=== PATIENT | male | born 1980 | race Caucasian/White ===

== ENCOUNTER 2016-10-23 23:30 | Emergency (ER) | payer SELFPAY ==
[~2016-10-23] VITALS: Ht 180.3 cm; Wt 77.3 kg
[~2016-10-23 23:30] MED LIST: ADVIL200 MG PO; ATIVAN 0.50.5 MG/TAB PO; CELEXA 20MG20 MG/TAB PO; DAZIDOX20 MG PO; DESYREL 100MG100 MG PO; DILAUDID 4MG TAB4 MG PO; FLEXERIL 1010 MG/TAB PO; MOTRIN 800800 MG/TAB PO; NAPROSYN500 MG PO; NO HOME MEDICATIONS; NORCO 325 MG-51 TAB; PAXIL 20MG20 MG PO; PAXIL40 MG PO; PERCOCET 325 MG1 TA2 PO; PERCOCET 325 MG1 TAB PO; PREDNISONE20 MG PO; SKELAXIN 4400 MG/TAB PO; SUBOXONE 2 MG-01 TAB SL; SUBOXONE 8 MG-21 FIL SL; SUBOXONE 8 MG-21 TAB SL; ULTRAM 50MG TAB50 MG PO; VALIUM 2MG T2 MG/TAB PO; VALIUM 5MG T5 MG/TAB PO; XANAX 0.5MG0.5 MG PO; XANAX 1MG1 MG PO; ZINC B.E.C.1 TAB PO; ZOFRAN 4MG T4 MG/TAB PO
[2016-10-23 23:33] VITALS: BP 112/69; TEMP 98.2
[2016-10-24] MEDS ORDERED: NORCO 325 MG-51 TAB PO (00:41)
[2016-10-24 00:49] VITALS: PULSE 120
== END 2016-10-24 00:50 | disposition home or self-care (01) ==
LOC: COL.ER 23:30
DX: S76.012A Strain of muscle, fascia and tendon of left hip, initial encounter (principal); S70.02XA Contusion of left hip, initial encounter; W22.8XXA Striking against or struck by other objects, initial encounter

== ENCOUNTER 2016-12-21 20:26 | Emergency (ER) | payer SELFPAY ==
[~2016-12-21] VITALS: Ht 180.3 cm; Wt 77.3 kg
[~2016-12-21 20:26] MED LIST changes: +NORCO 325 MG-51 TAB PO
[2016-12-21 20:28] VITALS: BP 121/60; PULSE 98; TEMP 98.8
[2016-12-21] MEDS ORDERED: DESYREL 100MG100 MG PO (20:30)
== END 2016-12-21 21:10 | disposition left against medical advice (07) ==
LOC: COL.ER 20:26
DX: F32.9 Major depressive disorder, single episode, unspecified (principal); Z88.1 Allergy status to other antibiotic agents; Z88.5 Allergy status to narcotic agent

== ENCOUNTER 2017-03-21 17:34 | Emergency (ER) | payer SELFPAY ==
[~2017-03-21] VITALS: Ht 182.9 cm; Wt 77.3 kg
[2017-03-21 17:35] VITALS: BP 138/76; PULSE 104; TEMP 99.2
[2017-03-21] MEDS ORDERED: NORCO 325 MG-51 TAB PO (18:52)
== END 2017-03-21 19:15 | disposition home or self-care (01) ==
LOC: COL.ER 17:34
DX: S46.912A Strain of unspecified muscle, fascia and tendon at shoulder and upper arm level, left arm, initial encounter (principal); S20.211A Contusion of right front wall of thorax, initial encounter; V19.9XXA Pedal cyclist (driver) (passenger) injured in unspecified traffic accident, initial encounter; Y93.55 Activity, bike riding; Y92.828 Other wilderness area as the place of occurrence of the external cause
CPT/HCPCS: A9284

== ENCOUNTER 2017-03-28 00:39 | Emergency (ER) | payer SELFPAY ==
[~2017-03-28] VITALS: Ht 182.9 cm; Wt 75.5 kg
[2017-03-28 00:43] VITALS: TEMP 99.1
[2017-03-28 01:30] LABS: BASO # 0.1 (0.0-0.2); BASO % 0.8 % (0.0-2.0); EOS # 0.2 (0.0-0.7); EOS % 1.9 % (0-4.0); GRAN # 5.5 (1.4-6.5); GRAN % 60.8 % (42.2-75.2); HEMOGLOBIN 12.1 g/dl (13.5-18.0); LYMPH # 2.4 (1.2-3.4); LYMPH % 26.7 % (20.0-51.0); MEAN CELL VOLUME 91 fl (80.0-100.0); MEAN CORPUSCULAR HEMOGLOBIN 32 pg (27.0-31.0); MEAN CORPUSCULAR HGB CONC 35 g/dl (33.0-37.0); MONO # 0.9 (0.1-0.6); MONO % 9.4 % (1.7-9.3); PLATELET COUNT 306 K/mm3 (130-400); RED BLOOD COUNT 3.79 M/mm3 (4.20-5.60); REDCELL DISTRIBUTION WIDTH-CV 12.6 % (11.5-14.5); WHITE BLOOD COUNT 9.1 K/mm3 (4.8-10.8)
[2017-03-28 01:31] LABS: HEMATOCRIT 34.4 % (42.0-52.0)
[2017-03-28 01:39] LABS: ADJUSTED CALCIUM 9.1 mg/dL (8.4-10.2); ALBUMIN 4.4 gm/dL (3.5-5.0); BILIRUBIN,TOTAL 0.6 mg/dL (0.0-1.0); CALCIUM 9.4 mg/dL (8.4-10.2); CREATININE, serum 0.83 mg/dL (0.66-1.25); POTASSIUM 3.5 mmol/L (3.4-5.0); TOTAL PROTEIN 7.3 gm/dL (6.4-8.2)
[2017-03-28 02:36] LABS: PH 6 (5-8); SQUAMOUS EPITHELIAL None Seen /hpf; URINE APPEARANCE Clear; URINE BACTERIA None Seen /hpf; URINE BILIRUBIN Negative (NEGATIVE); URINE BLOOD Negative (NEGATIVE); URINE COLOR Yellow; URINE GLUCOSE Negative (NEGATIVE); URINE KETONE Trace (NEGATIVE); URINE UROBILINOGEN Negative (NEGATIVE); URINE WBC 0-2 /hpf
[2017-03-28] MEDS ORDERED: VOLTAREN 75 DR75 MG PO (03:49)
[2017-03-28] MEDS ORDERED: BACTRIM DS 8001 TAB PO (03:49)
[2017-03-28] MEDS ORDERED: NORCO 325 MG-51 TAB PO (03:49)
[2017-03-28] MEDS ORDERED: SUDAFED30 MG PO (03:49)
[2017-03-28 05:30] VITALS: BP 113/69; PULSE 60
== END 2017-03-28 05:30 | disposition home or self-care (01) ==
LOC: COL.ER 00:39
PROVIDERS: Emergency Medicine
DX: T74.11XA Adult physical abuse, confirmed, initial encounter (principal); S02.2XXA Fracture of nasal bones, initial encounter for closed fracture; S00.03XA Contusion of scalp, initial encounter; S00.83XA Contusion of other part of head, initial encounter; S00.431A Contusion of right ear, initial encounter; S80.211A Abrasion, right knee, initial encounter; S70.311A Abrasion, right thigh, initial encounter; S50.319A Abrasion of unspecified elbow, initial encounter; S60.519A Abrasion of unspecified hand, initial encounter; F32.9 Major depressive disorder, single episode, unspecified; F41.9 Anxiety disorder, unspecified; Y07.9 Unspecified perpetrator of maltreatment and neglect; Y04.2XXA Assault by strike against or bumped into by another person, initial encounter
CPT/HCPCS: J2765; J3010; J7030; Q9967

== ENCOUNTER 2018-03-06 17:07 | Emergency (ER) | payer SELFPAY ==
[~2018-03-06] VITALS: Ht 182.9 cm; Wt 77.3 kg
[~2018-03-06 17:07] MED LIST changes: +BACTRIM DS 8001 TAB PO; +SUDAFED30 MG PO; +VOLTAREN 75 DR75 MG PO
[2018-03-06 17:24] VITALS: BP 123/70; PULSE 86; TEMP 99.1
[2018-03-06] MEDS ORDERED: NORCO 325 MG-51 TAB PO (19:18)
== END 2018-03-06 20:11 | disposition home or self-care (01) ==
LOC: COL.ER 17:07
DX: S62.001A Unspecified fracture of navicular [scaphoid] bone of right wrist, initial encounter for closed fracture (principal); S39.012A Strain of muscle, fascia and tendon of lower back, initial encounter; F41.9 Anxiety disorder, unspecified; F32.9 Major depressive disorder, single episode, unspecified; M54.9 Dorsalgia, unspecified; G89.29 Other chronic pain; F17.210 Nicotine dependence, cigarettes, uncomplicated; Z88.6 Allergy status to analgesic agent; V89.2XXA Person injured in unspecified motor-vehicle accident, traffic, initial encounter; Y92.410 Unspecified street and highway as the place of occurrence of the external cause
CPT/HCPCS: Q4021

== ENCOUNTER 2018-06-08 18:18 | Emergency (ER) | payer SELFPAY ==
[~2018-06-08] VITALS: Ht 182.9 cm; Wt 72.7 kg
[2018-06-08 18:24] VITALS: BP 114/71; TEMP 98
[2018-06-08 20:01] VITALS: PULSE 102
== END 2018-06-08 20:07 | disposition home or self-care (01) ==
LOC: COL.ER 18:18
DX: S61.210A Laceration without foreign body of right index finger without damage to nail, initial encounter (principal); S61.214A Laceration without foreign body of right ring finger without damage to nail, initial encounter; F41.9 Anxiety disorder, unspecified; F17.210 Nicotine dependence, cigarettes, uncomplicated; W22.8XXA Striking against or struck by other objects, initial encounter; V19.9XXA Pedal cyclist (driver) (passenger) injured in unspecified traffic accident, initial encounter

== ENCOUNTER 2018-06-11 11:55 | Emergency (ER) | payer SELFPAY ==
[~2018-06-11] VITALS: Ht 182.9 cm; Wt 77.3 kg
[2018-06-11 11:57] VITALS: TEMP 98.7
[2018-06-11 13:09] VITALS: BP 110/78; PULSE 88
== END 2018-06-11 13:05 | disposition home or self-care (01) ==
LOC: COL.ER 11:55
DX: S61.216A Laceration without foreign body of right little finger without damage to nail, initial encounter (principal); F32.9 Major depressive disorder, single episode, unspecified; F41.9 Anxiety disorder, unspecified; W26.0XXA Contact with knife, initial encounter

== ENCOUNTER → 2019-02-05 | Outpatient (CLI) | payer SELFPAY | LOC: ZCOL.LAB 17:14 | DX: R21 Rash and other nonspecific skin eruption (principal) ==

== ENCOUNTER 2019-06-10 22:33 | Emergency (ER) | payer SELFPAY ==
[~2019-06-10] VITALS: Ht 180.3 cm; Wt 75.0 kg
[2019-06-10 22:34] VITALS: TEMP 98
[2019-06-10 23:42] VITALS: BP 108/82; PULSE 104
== END 2019-06-10 23:43 | disposition home or self-care (01) ==
LOC: COL.ER 22:33
DX: S61.212A Laceration without foreign body of right middle finger without damage to nail, initial encounter (principal); S93.402A Sprain of unspecified ligament of left ankle, initial encounter; F41.9 Anxiety disorder, unspecified; F32.9 Major depressive disorder, single episode, unspecified; F17.210 Nicotine dependence, cigarettes, uncomplicated; Z23 Encounter for immunization; W25.XXXA Contact with sharp glass, initial encounter; W19.XXXA Unspecified fall, initial encounter; X50.1XXA Overexertion from prolonged static or awkward postures, initial encounter

== ENCOUNTER 2019-06-12 14:30 | Emergency (ER) | payer SELFPAY ==
[~2019-06-12] VITALS: Ht 180.3 cm; Wt 75.0 kg
[2019-06-12 14:58] VITALS: BP 109/83; TEMP 98.1
[2019-06-12] MEDS ORDERED: NORCO 325 MG-51 TAB PO (17:02)
[2019-06-12 17:36] VITALS: PULSE 86
--- NOTE | 2019-06-12 17:41 | NUR ---
STAN responded to ED consult and met with the patient and his friend. The patient had a 5th metatarsal fracture and needs crutches. The patient is self pay and reports that he is unable to afford crutches. STAN provided the patient with a med voucher that expires, 06/13, to [facility] for the crutches. The crutches were $29.95. STAN contacted and faxed the med voucher and script to [facility]. The patient and his friend report that they also do not have transportation to [facility] or back [place] and are unable to afford a taxi. STAN contacted [facility]. They report they are booked until 7:00 PM. STAN informed the patient and his friend. The patient reports that they are trying to get a friend to come pick them up, if unable to they would need the taxi. STAN provided the taxi voucher to the patient's RN and informed her of the above information.
== END 2019-06-12 17:36 | disposition home or self-care (01) ==
LOC: COL.ER 14:30
DX: S92.352A Displaced fracture of fifth metatarsal bone, left foot, initial encounter for closed fracture (principal); S93.402A Sprain of unspecified ligament of left ankle, initial encounter; F41.9 Anxiety disorder, unspecified; F32.9 Major depressive disorder, single episode, unspecified; F17.210 Nicotine dependence, cigarettes, uncomplicated; X50.1XXA Overexertion from prolonged static or awkward postures, initial encounter; Y99.0 Civilian activity done for income or pay
CPT/HCPCS: Q4045

== ENCOUNTER 2019-07-01 14:20 | Emergency (ER) | payer SELFPAY ==
[~2019-07-01] VITALS: Ht 180.3 cm; Wt 75.0 kg
[2019-07-01 14:31] VITALS: BP 145/88; TEMP 97.9
[2019-07-01] MEDS ORDERED: NAPROXEN 3375 MG/TAB PO (15:25)
[2019-07-01] MEDS ORDERED: NORCO 325 MG-51 TAB PO (16:17)
[2019-07-01 16:38] VITALS: PULSE 80
== END 2019-07-01 16:40 | disposition home or self-care (01) ==
LOC: COL.ER 14:20
DX: S30.0XXA Contusion of lower back and pelvis, initial encounter (principal); S63.91XA Sprain of unspecified part of right wrist and hand, initial encounter; S90.32XA Contusion of left foot, initial encounter; W10.9XXA Fall (on) (from) unspecified stairs and steps, initial encounter; Y92.009 Unspecified place in unspecified non-institutional (private) residence as the place of occurrence of the external cause
CPT/HCPCS: J1885; J2270; J2550

== ENCOUNTER 2019-10-06 10:26 | Emergency (ER) | payer SELFPAY ==
[~2019-10-06] VITALS: Ht 180.3 cm; Wt 77.3 kg
[~2019-10-06 10:26] MED LIST changes: +NAPROXEN 3375 MG/TAB PO
[2019-10-06 10:32] VITALS: BP 137/62; TEMP 97.9
[2019-10-06] MEDS ORDERED: NORCO 325 MG-51 TAB PO ×3 (10:56→13:53)
[2019-10-06 11:36] VITALS: PULSE 87
== END 2019-10-06 11:37 | disposition home or self-care (01) ==
LOC: COL.ER 10:26
DX: T22.311D Burn of third degree of right forearm, subsequent encounter (principal); T31.11 Burns involving 10-19% of body surface with 10-19% third degree burns; M54.5 Low back pain; R25.2 Cramp and spasm; X19.XXXD Contact with other heat and hot substances, subsequent encounter; Y92.009 Unspecified place in unspecified non-institutional (private) residence as the place of occurrence of the external cause

== ENCOUNTER 2020-03-04 09:22 | Emergency (ER) | payer SELFPAY ==
[~2020-03-04] VITALS: Ht 180.3 cm; Wt 77.3 kg
[2020-03-04 09:25] VITALS: BP 117/71; TEMP 98.5
[2020-03-04] MEDS ORDERED: NORCO 325 MG-51 TAB PO ×2 (10:08)
[2020-03-04] MEDS ORDERED: FLEXERIL 1010 MG/TAB PO (10:08)
[2020-03-04] MEDS ORDERED: LIDODERM 5% PATC1 EA TP (10:08)
[2020-03-04 10:35] VITALS: PULSE 104
== END 2020-03-04 10:35 | disposition home or self-care (01) ==
LOC: COL.ER 09:22
DX: M54.5 Low back pain (principal); F17.210 Nicotine dependence, cigarettes, uncomplicated; Z88.5 Allergy status to narcotic agent
CPT/HCPCS: J1885

== ENCOUNTER 2020-03-08 14:02 | Emergency (ER) | payer SELFPAY ==
[~2020-03-08] VITALS: Ht 180.3 cm; Wt 79.5 kg
[~2020-03-08 14:02] MED LIST changes: +LIDODERM 5% PATC1 EA TP
[2020-03-08 14:33] VITALS: BP 118/80; TEMP 97.7
[2020-03-08 15:44] VITALS: PULSE 80
== END 2020-03-08 15:30 | disposition home or self-care (01) ==
LOC: COL.ER 14:02
DX: S23.3XXA Sprain of ligaments of thoracic spine, initial encounter (principal); F41.9 Anxiety disorder, unspecified; F32.9 Major depressive disorder, single episode, unspecified; F17.210 Nicotine dependence, cigarettes, uncomplicated; G89.29 Other chronic pain; M54.9 Dorsalgia, unspecified; W10.9XXA Fall (on) (from) unspecified stairs and steps, initial encounter; Y92.009 Unspecified place in unspecified non-institutional (private) residence as the place of occurrence of the external cause
CPT/HCPCS: J1885

== ENCOUNTER 2020-03-25 20:47 | Emergency (ER) | payer SELFPAY ==
[~2020-03-25] VITALS: Ht 180.3 cm; Wt 72.7 kg
[2020-03-25 20:55] VITALS: BP 112/79; TEMP 97.5
[2020-03-25 21:51] VITALS: PULSE 78
== END 2020-03-25 21:51 | disposition home or self-care (01) ==
LOC: COL.ER 20:47
DX: G43.909 Migraine, unspecified, not intractable, without status migrainosus (principal); F32.9 Major depressive disorder, single episode, unspecified; F17.210 Nicotine dependence, cigarettes, uncomplicated; Z88.1 Allergy status to other antibiotic agents; Z88.6 Allergy status to analgesic agent
CPT/HCPCS: J1200; J1885; J2765; J7030

== ENCOUNTER → 2020-05-16 | Outpatient (CLI) | payer SELFPAY | LOC: ZCOL.LAB 19:43 | DX: B34.9 Viral infection, unspecified (principal); Z20.828 Contact with and (suspected) exposure to other viral communicable diseases ==

== ENCOUNTER 2020-05-23 16:17 | Emergency (ER) | payer SELFPAY ==
[~2020-05-23] VITALS: Ht 180.3 cm; Wt 72.7 kg
[2020-05-23 16:31] VITALS: BP 127/77; TEMP 98.2
[2020-05-23] MEDS ORDERED: NORCO 325 MG-51 TAB PO (17:16)
[2020-05-23 17:42] VITALS: PULSE 92
== END 2020-05-23 17:44 | disposition home or self-care (01) ==
LOC: COL.ER 16:17
DX: S93.402A Sprain of unspecified ligament of left ankle, initial encounter (principal); G43.909 Migraine, unspecified, not intractable, without status migrainosus; F41.9 Anxiety disorder, unspecified; F32.9 Major depressive disorder, single episode, unspecified; G89.29 Other chronic pain; F17.210 Nicotine dependence, cigarettes, uncomplicated; Z88.1 Allergy status to other antibiotic agents; Z88.6 Allergy status to analgesic agent; X50.1XXA Overexertion from prolonged static or awkward postures, initial encounter

== ENCOUNTER 2020-06-06 16:07 | Emergency (ER) | payer SELFPAY ==
[~2020-06-06] VITALS: Ht 180.3 cm; Wt 72.7 kg
[2020-06-06] MEDS ORDERED: FLEXERIL 1010 MG/TAB PO (18:08)
[2020-06-06 18:25] VITALS: BP 132/74; PULSE 78; TEMP 98.1
== END 2020-06-06 18:30 | disposition home or self-care (01) ==
LOC: COL.ER 16:07
DX: S29.012A Strain of muscle and tendon of back wall of thorax, initial encounter (principal); F41.9 Anxiety disorder, unspecified; F17.210 Nicotine dependence, cigarettes, uncomplicated; X50.0XXA Overexertion from strenuous movement or load, initial encounter; Y93.F2 Activity, caregiving, lifting; Y99.0 Civilian activity done for income or pay
CPT/HCPCS: J1885

== ENCOUNTER 2020-06-21 16:01 | Emergency (ER) | payer SELFPAY ==
[~2020-06-21] VITALS: Ht 180.3 cm; Wt 67.0 kg
[2020-06-21 16:08] VITALS: TEMP 96.7
[2020-06-21] MEDS ORDERED: DESYREL 50MG50 MG PO (16:48)
[2020-06-21] MEDS ORDERED: PAXIL 20MG20 MG PO ×2 (16:48)
[2020-06-21] MEDS ORDERED: ATARAX50 MG PO (16:50)
[2020-06-21 17:10] VITALS: BP 138/87; PULSE 84
== END 2020-06-21 17:10 | disposition home or self-care (01) ==
LOC: COL.ER 16:01
DX: F41.9 Anxiety disorder, unspecified (principal); F32.9 Major depressive disorder, single episode, unspecified; M25.551 Pain in right hip; F17.200 Nicotine dependence, unspecified, uncomplicated; Z88.0 Allergy status to penicillin; Z88.5 Allergy status to narcotic agent
CPT/HCPCS: J1885

== ENCOUNTER 2020-08-11 17:12 | Emergency (ER) | payer SELFPAY ==
[~2020-08-11] VITALS: Ht 180.3 cm; Wt 68.2 kg
[~2020-08-11 17:12] MED LIST changes: +ATARAX50 MG PO; +DESYREL 50MG50 MG PO
[2020-08-11 17:19] VITALS: TEMP 97.5
[2020-08-11 17:59] VITALS: BP 110/62; PULSE 95
== END 2020-08-11 17:57 | disposition home or self-care (01) ==
LOC: COL.ER 17:12
DX: F41.9 Anxiety disorder, unspecified (principal); G89.29 Other chronic pain; F32.9 Major depressive disorder, single episode, unspecified; F17.210 Nicotine dependence, cigarettes, uncomplicated; Z88.1 Allergy status to other antibiotic agents; Z88.6 Allergy status to analgesic agent

== ENCOUNTER 2020-08-25 18:11 | Emergency (ER) | payer SELFPAY ==
[~2020-08-25] VITALS: Ht 180.3 cm; Wt 68.2 kg
[2020-08-25 18:20] VITALS: TEMP 98.8
[2020-08-25 20:19] VITALS: BP 107/75; PULSE 89
== END 2020-08-25 20:20 | disposition home or self-care (01) ==
LOC: COL.ER 18:11
DX: S70.02XA Contusion of left hip, initial encounter (principal); F17.210 Nicotine dependence, cigarettes, uncomplicated; Z88.1 Allergy status to other antibiotic agents; Z88.6 Allergy status to analgesic agent; W00.0XXA Fall on same level due to ice and snow, initial encounter
CPT/HCPCS: J1885

== ENCOUNTER 2020-09-19 16:31 | Emergency (ER) | payer SELFPAY ==
[~2020-09-19] VITALS: Ht 180.3 cm; Wt 68.2 kg
[2020-09-19 16:55] VITALS: BP 117/74; TEMP 97.4
[2020-09-19] MEDS ORDERED: LIDODERM 5% PATC1 EA TP (18:00)
[2020-09-19 18:46] VITALS: PULSE 94
== END 2020-09-19 18:47 | disposition home or self-care (01) ==
LOC: COL.ER 16:31
DX: S20.224A Contusion of middle back wall of thorax, initial encounter (principal); F17.210 Nicotine dependence, cigarettes, uncomplicated; R06.02 Shortness of breath; Z88.1 Allergy status to other antibiotic agents; Z88.6 Allergy status to analgesic agent; W01.190A Fall on same level from slipping, tripping and stumbling with subsequent striking against furniture, initial encounter
CPT/HCPCS: J1885

== ENCOUNTER 2020-10-18 17:34 | Emergency (ER) | payer SELFPAY ==
[~2020-10-18] VITALS: Ht 180.3 cm; Wt 75.0 kg
[2020-10-18 17:39] VITALS: BP 139/98; PULSE 97; TEMP 98
[2020-10-18] MEDS ORDERED: CIPRO 500MG TA500 MG PO (18:14)
[2020-10-18] MEDS ORDERED: PHENERGAN 25 TA25 MG PO (18:14)
== END 2020-10-18 18:31 | disposition home or self-care (01) ==
LOC: COL.ER 17:34
DX: A05.3 Foodborne Vibrio parahaemolyticus intoxication (principal); F17.210 Nicotine dependence, cigarettes, uncomplicated; Z88.1 Allergy status to other antibiotic agents; Z88.6 Allergy status to analgesic agent
CPT/HCPCS: J1885; J2550

== ENCOUNTER 2020-10-24 18:53 | Emergency (ER) | payer SELFPAY ==
[~2020-10-24] VITALS: Ht 180.3 cm; Wt 72.7 kg
[~2020-10-24 18:53] MED LIST changes: +CIPRO 500MG TA500 MG PO; +PHENERGAN 25 TA25 MG PO
[2020-10-24 19:00] VITALS: TEMP 98.4
[2020-10-24] MEDS ORDERED: ATARAX 25MG25 MG/TAB PO (19:24)
[2020-10-24] MEDS ORDERED: FLEXERIL 1010 MG/TAB PO (19:24)
[2020-10-24 19:30] VITALS: BP 139/87; PULSE 88
== END 2020-10-24 19:31 | disposition home or self-care (01) ==
LOC: COL.ER 18:53
DX: M62.830 Muscle spasm of back (principal); F17.210 Nicotine dependence, cigarettes, uncomplicated; Z88.1 Allergy status to other antibiotic agents; Z88.6 Allergy status to analgesic agent
CPT/HCPCS: J1885

== ENCOUNTER 2020-10-28 01:02 | Emergency (ER) | payer SELFPAY ==
[~2020-10-28] VITALS: Ht 180.3 cm; Wt 68.2 kg
[~2020-10-28 01:02] MED LIST changes: +ATARAX 25MG25 MG/TAB PO
[2020-10-28 01:03] VITALS: TEMP 98.5
[2020-10-28 02:43] VITALS: BP 119/86; PULSE 89
== END 2020-10-28 02:43 | disposition home or self-care (01) ==
LOC: COL.ER 01:02
DX: S51.812A Laceration without foreign body of left forearm, initial encounter (principal); F10.129 Alcohol abuse with intoxication, unspecified; F17.210 Nicotine dependence, cigarettes, uncomplicated; Z88.1 Allergy status to other antibiotic agents; Z88.6 Allergy status to analgesic agent; W01.190A Fall on same level from slipping, tripping and stumbling with subsequent striking against furniture, initial encounter
CPT/HCPCS: J2270

== ENCOUNTER 2020-10-31 19:33 | Emergency (ER) | payer SELFPAY ==
[~2020-10-31] VITALS: Ht 180.3 cm; Wt 65.9 kg
[2020-10-31 19:48] VITALS: BP 129/84; TEMP 98.2
[2020-10-31 20:12] VITALS: PULSE 93
== END 2020-10-31 20:12 | disposition home or self-care (01) ==
LOC: COL.ER 19:33
DX: Z48.00 Encounter for change or removal of nonsurgical wound dressing (principal); F32.9 Major depressive disorder, single episode, unspecified; F41.9 Anxiety disorder, unspecified; Z88.1 Allergy status to other antibiotic agents; Z88.6 Allergy status to analgesic agent

== ENCOUNTER 2020-11-15 19:15 | Emergency (ER) | payer SELFPAY ==
[~2020-11-15] VITALS: Ht 180.3 cm; Wt 68.2 kg
[2020-11-15 19:20] VITALS: TEMP 97.3
[2020-11-15 20:03] VITALS: BP 124/72; PULSE 82
== END 2020-11-15 20:06 | disposition home or self-care (01) ==
LOC: COL.ER 19:15
DX: M79.632 Pain in left forearm (principal); Z48.00 Encounter for change or removal of nonsurgical wound dressing; Z88.1 Allergy status to other antibiotic agents; Z88.5 Allergy status to narcotic agent
CPT/HCPCS: J1885

== ENCOUNTER 2021-01-29 17:35 | Emergency (ER) | payer SELFPAY ==
[~2021-01-29] VITALS: Ht 180.3 cm; Wt 72.7 kg
[2021-01-29] MEDS ORDERED: PREDNISONE20 MG PO (18:08)
[2021-01-29] MEDS ORDERED: CEPHALEXIN500 M1 PO (18:08)
[2021-01-29 18:23] VITALS: BP 132/64; PULSE 88; TEMP 98.4
[2021-01-29 18:28] LABS: STREP SCREEN NEGATIVE
== END 2021-01-29 18:23 | disposition home or self-care (01) ==
LOC: COL.ER 17:35
PROVIDERS: Family Medicine
DX: J03.90 Acute tonsillitis, unspecified (principal); F17.200 Nicotine dependence, unspecified, uncomplicated; Z88.1 Allergy status to other antibiotic agents
CPT/HCPCS: J7512

== ENCOUNTER 2021-02-03 14:46 | Emergency (ER) | payer SELFPAY ==
[~2021-02-03] VITALS: Ht 180.3 cm; Wt 70.5 kg
[~2021-02-03 14:46] MED LIST changes: +CEPHALEXIN500 M1 PO
[2021-02-03 14:58] VITALS: TEMP 98
[2021-02-03 16:20] LABS: BASO # 0.1 (0.0-0.2); BASO % 0.6 % (0.0-2.0); EOS # 0.2 (0.0-0.7); EOS % 1.3 % (0-4.0); GRAN # 9.2 (1.4-6.5); GRAN % 66.2 % (42.2-75.2); HEMATOCRIT 37.8 % (42.0-52.0); HEMOGLOBIN 12.7 g/dl (13.5-18.0); LYMPH # 3.1 (1.2-3.4); LYMPH % 22.2 % (20.0-51.0); MEAN CELL VOLUME 95 fl (80.0-100.0); MEAN CORPUSCULAR HEMOGLOBIN 32 pg (27.0-31.0); MEAN CORPUSCULAR HGB CONC 34 g/dl (33.0-37.0); MEAN PLATELET VOLUME 8.9 fl (7.4-10.4); MONO # 1.2 (0.1-0.6); MONO % 8.9 % (1.7-9.3); PLATELET COUNT 368 K/mm3 (130-400); RED BLOOD COUNT 3.97 M/mm3 (4.20-5.60); REDCELL DISTRIBUTION WIDTH-CV 12.4 % (11.5-14.5)
[2021-02-03 16:33] LABS: BILIRUBIN,TOTAL 0.6 mg/dL (0.0-1.0); C-REACTIVE PROTEIN 1.1 mg/dL (0.0-0.9); CREATININE, serum 0.75 (0.66-1.25); POTASSIUM 3.6 mmol/L (3.4-5.0); TOTAL PROTEIN 7.1 gm/dL (6.4-8.2)
[2021-02-03] MEDS ORDERED: NORCO 325 MG-51 TAB PO (17:12)
[2021-02-03] MEDS ORDERED: CLEOCIN HCL300 MG PO (17:12)
[2021-02-03 17:19] VITALS: BP 139/73; PULSE 74
== END 2021-02-03 17:19 | disposition home or self-care (01) ==
LOC: COL.ER 14:46
PROVIDERS: Nurse Practitioner
DX: J03.90 Acute tonsillitis, unspecified (principal); F17.200 Nicotine dependence, unspecified, uncomplicated; Z20.822 Contact with and (suspected) exposure to COVID-19; Z88.0 Allergy status to penicillin
CPT/HCPCS: J1100

== ENCOUNTER 2022-05-25 06:40 | Emergency (ER) | payer SELFPAY ==
[~2022-05-25] VITALS: Ht 180.3 cm; Wt 65.9 kg
[~2022-05-25 06:40] MED LIST changes: +CLEOCIN HCL300 MG PO
[2022-05-25 07:15] VITALS: BP 128/67; TEMP 97.9
[2022-05-25] MEDS ORDERED: FLEXERIL 1010 MG/TAB PO (08:15)
[2022-05-25 08:30] VITALS: PULSE 85
== END 2022-05-25 08:30 | disposition home or self-care (01) ==
LOC: COL.ER 06:40
DX: S39.012A Strain of muscle, fascia and tendon of lower back, initial encounter (principal); S76.911A Strain of unspecified muscles, fascia and tendons at thigh level, right thigh, initial encounter; F17.210 Nicotine dependence, cigarettes, uncomplicated; Z88.5 Allergy status to narcotic agent; X50.0XXA Overexertion from strenuous movement or load, initial encounter; Y92.59 Other trade areas as the place of occurrence of the external cause; Y99.0 Civilian activity done for income or pay
CPT/HCPCS: J1885; J2360

== ENCOUNTER 2022-12-28 13:59 | Emergency (ER) | payer SELFPAY ==
[~2022-12-28] VITALS: Ht 180.3 cm; Wt 65.9 kg
[2022-12-28 14:00] VITALS: TEMP 98.1
[2022-12-28 17:18] VITALS: BP 137/86; PULSE 88
[2022-12-28] MEDS ORDERED: NORCO 325 MG-51 TAB PO (17:19)
== END 2022-12-28 17:19 | disposition home or self-care (01) ==
LOC: COL.ER 13:59
DX: S62.310A Displaced fracture of base of second metacarpal bone, right hand, initial encounter for closed fracture (principal); S62.302A Unspecified fracture of third metacarpal bone, right hand, initial encounter for closed fracture; S62.304A Unspecified fracture of fourth metacarpal bone, right hand, initial encounter for closed fracture; F17.210 Nicotine dependence, cigarettes, uncomplicated; Z88.5 Allergy status to narcotic agent; Z28.310 Unvaccinated for COVID-19; W22.01XA Walked into wall, initial encounter
CPT/HCPCS: J1885

== ENCOUNTER 2022-12-30 13:13 | Emergency (ER) | payer SELFPAY ==
[~2022-12-30] VITALS: Ht 180.3 cm; Wt 65.9 kg
[2022-12-30 13:17] VITALS: BP 133/96; TEMP 98
[2022-12-30] MEDS ORDERED: PERCOCET 325 MG1 TA2 PO (16:37)
[2022-12-30 17:01] VITALS: PULSE 88
== END 2022-12-30 17:01 | disposition home or self-care (01) ==
LOC: COL.ER 13:13
DX: S62.310A Displaced fracture of base of second metacarpal bone, right hand, initial encounter for closed fracture (principal); S62.392A Other fracture of third metacarpal bone, right hand, initial encounter for closed fracture; S62.394A Other fracture of fourth metacarpal bone, right hand, initial encounter for closed fracture; S62.396A Other fracture of fifth metacarpal bone, right hand, initial encounter for closed fracture; X58.XXXA Exposure to other specified factors, initial encounter
CPT/HCPCS: J1885

== ENCOUNTER 2023-10-21 10:38 | Emergency (ER) | payer SELFPAY ==
[~2023-10-21] VITALS: Ht 180.3 cm; Wt 63.6 kg
[2023-10-21 14:04] VITALS: BP 149/98; TEMP 98
[2023-10-21] MEDS ORDERED: PREDNISONE50 MG PO (15:43)
[2023-10-21] MEDS ORDERED: Ketorolac 60 MG/2 ML VIAL IM ONE (15:45)
[2023-10-21] MEDS ORDERED: predniSONE 50 MG TAB PO ONE (15:45)
[2023-10-21 15:55] VITALS: PULSE 73
== END 2023-10-21 15:55 | disposition home or self-care (01) ==
LOC: COL.ER 10:38
DX: M13.171 Monoarthritis, not elsewhere classified, right ankle and foot (principal); F17.210 Nicotine dependence, cigarettes, uncomplicated
CPT/HCPCS: J1885; J7512

== ENCOUNTER 2023-11-20 12:34 | Emergency (ER) | payer SELFPAY ==
[~2023-11-20] VITALS: Ht 180.3 cm; Wt 68.2 kg
[~2023-11-20 12:34] MED LIST changes: +PREDNISONE50 MG PO
[2023-11-20 12:38] VITALS: TEMP 98.5
[2023-11-20] MEDS ORDERED: CEPHALEXIN500 M1 PO (13:00)
[2023-11-20] MEDS ORDERED: BACTRIM DS 8001 TAB PO (13:00)
[2023-11-20] MEDS ORDERED: cefTRIAXone 1 G,Lidocaine PF 1% 2.1 ML IM ONE (13:00)
[2023-11-20] MEDS ORDERED: NORCO 325 MG-51 TAB PO (13:00)
[2023-11-20 14:16] VITALS: BP 127/81; PULSE 91
== END 2023-11-20 14:17 | disposition home or self-care (01) ==
LOC: COL.ER 12:34
DX: L03.011 Cellulitis of right finger (principal)
CPT/HCPCS: J0696

== ENCOUNTER 2024-02-05 20:41 | Emergency (ER) | payer SELFPAY ==
[~2024-02-05] VITALS: Ht 180.3 cm; Wt 59.1 kg
[2024-02-05] MEDS ORDERED: Ketorolac 60 MG/2 ML VIAL IM ONE (21:15)
[2024-02-05] MEDS ORDERED: HYDROcodone/Acetaminophen 10-325 MG TAB PO ONE (22:00)
[2024-02-05 22:08] VITALS: BP 120/88; PULSE 108; TEMP 98.2
== END 2024-02-05 22:08 | disposition home or self-care (01) ==
LOC: COL.ER 20:41
DX: S01.511A Laceration without foreign body of lip, initial encounter (principal); S01.81XA Laceration without foreign body of other part of head, initial encounter; F17.210 Nicotine dependence, cigarettes, uncomplicated; W22.8XXA Striking against or struck by other objects, initial encounter; Y93.39 Activity, other involving climbing, rappelling and jumping off; Y92.34 Swimming pool (public) as the place of occurrence of the external cause
CPT/HCPCS: J1885

== ENCOUNTER 2024-03-24 14:44 | Emergency (ER) | payer SELFPAY ==
[~2024-03-24] VITALS: Ht 180.3 cm; Wt 63.6 kg
[2024-03-24 14:46] VITALS: TEMP 97.9
[2024-03-24] MEDS ORDERED: Ketorolac 30 MG/ML VIAL IV ONE (15:15)
[2024-03-24] MEDS ORDERED: NS 1,000 ML IV ONE (15:15)
[2024-03-24] MEDS ORDERED: Ondansetron 4 MG/2 ML VIAL IV ONE (15:15)
[2024-03-24 15:27] LABS: BASO # 0.1 K/mm3 (0.0-0.2); BASO % 0.6 % (0.0-2.0); EOS % 0.1 % (0.0-4.0); GRAN # 8.4 K/mm3 (1.4-6.5); GRAN % 83.9 % (42.2-75.2); HEMATOCRIT 42.6 % (42.0-52.0); HEMOGLOBIN 14.1 g/dl (13.5-18.0); LYMPH # 1.1 K/mm3 (1.2-3.4); LYMPH % 10.8 % (20.0-51.0); MEAN CELL VOLUME 101 fl (80.0-100.0); MEAN CORPUSCULAR HEMOGLOBIN 34 pg (27-31); MEAN CORPUSCULAR HGB CONC 33 g/dl (33.0-37.0); MEAN PLATELET VOLUME 9.8 fl (7.4-10.4); MONO # 0.4 K/mm3 (0.1-0.6); PLATELET COUNT 315 K/mm3 (130-400); REDCELL DISTRIBUTION WIDTH-CV 12.1 % (11.5-14.5)
[2024-03-24] MEDS ORDERED: Famotidine 20 MG TAB PO ONE (15:30)
[2024-03-24 15:44] LABS: ALBUMIN 4.7 g/dL (3.5-5.0); BILIRUBIN,TOTAL 0.9 mg/dL (0.2-1.2); CALCIUM 9.5 mg/dL (8.4-10.2); CREATININE, serum 0.91 mg/dL (0.72-1.25); POTASSIUM 4.3 mEq/L (3.5-4.5); TOTAL PROTEIN 8.4 g/dl (6.2-8.1)
[2024-03-24] MEDS ORDERED: LR 1,000 ML IV ONE (16:15)
[2024-03-24] MEDS ORDERED: Home Ondansetron ODT 4 MG #2 ODT/PACK PO ONE (20:00)
[2024-03-24 20:15] VITALS: BP 116/67; PULSE 75
== END 2024-03-24 20:15 | disposition home or self-care (01) ==
LOC: COL.ER 14:44
PROVIDERS: Emergency Medicine
DX: E86.0 Dehydration (principal); F17.210 Nicotine dependence, cigarettes, uncomplicated; X30.XXXA Exposure to excessive natural heat, initial encounter
CPT/HCPCS: J1885; J2405; J7030; J7120

== ENCOUNTER 2024-05-15 16:59 | Emergency (ER) | payer SELFPAY ==
[~2024-05-15] VITALS: Ht 180.3 cm; Wt 68.2 kg
[2024-05-15 17:07] VITALS: TEMP 98.4
[2024-05-15] MEDS ORDERED: Ketorolac 30 MG/ML VIAL IM ONE (19:00)
[2024-05-15] MEDS ORDERED: Home oxyCODONE/Acetaminophen 5/325 MG #4 TAB/PACK PO ONE (19:45)
[2024-05-15 20:13] VITALS: BP 135/98; PULSE 74
== END 2024-05-15 20:13 | disposition home or self-care (01) ==
LOC: COL.ER 16:59
DX: S62.307A Unspecified fracture of fifth metacarpal bone, left hand, initial encounter for closed fracture (principal); W22.09XA Striking against other stationary object, initial encounter; Y93.01 Activity, walking, marching and hiking
CPT/HCPCS: J1885